=== PATIENT | male | born 1955 ===

== ENCOUNTER 2020-01-28 11:41 | Emergency (ER) | payer BC, OTHER ==
--- NOTE | 2020-01-28 11:54 | EDM.PDOC ---
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 Patient states that on Saturday he had his blood pressure medication increased due to high blood pressure and has been monitoring his blood pressure at home and had a high reading at home so came to the ED. Patient states that despite increasing the dose, his blood pressure continues to be high. Patient states that he does have a slight headache which he is unsure as if related to his blood pressure but has had it for a week. Patient denies any head injury or trauma. Patient does follow with his primary care provider, Dr. brooke, in the clinic for routine care for his diabetes, blood pressure, and high cholesterol. Patient denies fever, chills, chest pain, shortness of breath, or cough. Denies neck stiff ness, change in vision, syncope, or near syncope. Denies nausea, vomiting, abdominal pain, diarrhea, constipation, or dysuria. Has not noted any blood in urine or stool. Patient has been eating and drinking appropriately. Review of systems: As per history of present illness and below otherwise all systems reviewed and negative. Past medical history: As per history of present illness and as reviewed below otherwise noncontributory. Surgical history: As per history of present illness and as reviewed below otherwise noncontributory. Social history: See social history for further information Family history: As per history of present illness and as reviewed below otherwise noncontributory. Physical exam: General: Patient is alert, oriented, and in no acute distress. Patient sitting comfortably on exam table. HEENT: Atraumatic, normocephalic, pupils equal and reactive bilaterally, negative for conjunctival pallor or scleral icterus, mucous membranes moist, TMs normal bilaterally, throat clear, neck supple, nontender, trachea midline. No drooling or trismus noted. No meningeal signs. No hot potato voice noted. Lungs: Clear to auscultation, breath sounds equal bilaterally, chest nontender. Heart: S1S2, regular rate and rhythm without overt murmur Abdomen: Soft, nondistended, nontender. Negative for masses or hepatosplenomegaly. Negative for costovertebral tenderness. Pelvis: Stable nontender. Genitourinary: Deferred. Rectal: Deferred. Skin: Intact, warm, dry. No lesions or rashes noted. Extremities: Atraumatic, negative for cords or calf pain. Neurovascular unremarkable. Neuro: Awake, alert, oriented. Cranial nerves II through XII unremarkable. Cerebellum unremarkable. Motor and sensory unremarkable throughout. Exam nonfocal. Notes: EKG reviewed by me. HR 82, regular sinus rhythm, normal axis. Compared to prior EKG on file and no acute changes. Although patients blood pressure is elevated today, I do not see an emergent reason to correct this at this time. He has been following with blood pressure changes in medications closely with Dr. Brooke, PCP in the clinic. Patient does not show any neurological deficits on exam, no change in vision, no proteinuria, no renal failure, no back pain, no dyspnea, no altered level of consciousness, or suggestion evidence suggestive of myocardial infarction. Signs and symptoms that would prompt return to the ED reviewed and thoroughly discussed with patient. Discussed importance for follow-up with his primary care provider to have reevaluation of his blood pressure medications. He follows with Dr. Brooke who has been adjusting medications over the course of the past few weeks and discussed the importance to have this followed up with him. Voices understanding and is agreeable to plan of care. Denies any further questions or concerns at this time. Diagnostics: CBC, CMP, UA, EKG, chest x-ray, troponin, head CT Therapeutics: None (patient declines analgesic pain medication) Prescription: None Impression: Hypertension Headache Plan: 1. You can alternate ibuprofen and Tylenol as directed for pain and discomfort. 2. Follow-up with your primary care provider to have your blood pressure medications reevaluated and as discussed.. 3. Return to the ED as needed and as discussed. Definitive disposition and diagnosis as appropriate pending reevaluation and review of above. headache Pain Score (Numeric/FACES): 3 - Related Data Allergies Allergy/AdvReac Type Severity Reaction Status Date / Time No Known Allergies Allergy Verified 02/29/16 17:48 Home Meds: Home Meds metFORMIN HCl [Metformin HCl ER] 1,000 mg PO BID #60 tab.er.24 03/02/16 [Rx] Lisinopril 20 mg PO DAILY 01/28/20 [History] atorvaSTATin [Lipitor] 40 mg PO DAILY 01/28/20 [History] Past Medical History Cardiovascular History: Reports: Hypertension Endocrine/Metabolic History: Reports: Diabetes, Type II Social & Family History - Family History Family Medical History: Noncontributory ED ROS GENERAL - Review of Systems Review Of Systems: Comprehensive ROS is negative, except as noted in HPI. ED EXAM, GENERAL - Physical Exam Exam: See Below (See dictation) Course - Vital Signs Last Recorded V/S: Last Vital Signs Temp 97.8 F 01/28/20 11:58 Pulse 71 01/28/20 13:49 Resp 17 01/28/20 13:49 BP 191/107 H 01/28/20 13:49 Pulse Ox 98 01/28/20 13:49 - Orders/Labs/Meds Orders: Active Orders 24 hr Category Date Time Status EKG Documentation Completion [RC] STAT Care 01/28/20 12:16 Active EKG Documentation Completion [RC] STAT Care 01/28/20 14:25 Active Labs: Laboratory Tests 01/28/20 01/28/20 01/28/20 Range/Units 12:25 12:25 13:20 WBC 6.04 (4.0-11.0) K/uL RBC 4.88 (4.50-5.90) M/uL Hgb 14.8 (13.0-17.0) g/dL Hct 42.8 (38.0-50.0) % MCV 87.7 (80.0-98.0) fL MCH 30.3 (27.0-32.0) pg MCHC 34.6 (31.0-37.0) g/dL RDW Std Deviation 41.0 (28.0-62.0) fl RDW Coeff of Martha 13 (11.0-15.0) % Plt Count 209 (150-400) K/uL MPV 10.00 (7.40-12.00) fL Neut % (Auto) 58.8 (48.0-80.0) % Lymph % (Auto) 31.0 (16.0-40.0) % [place] % (Auto) 7.0 (0.0-15.0) % Eos % (Auto) 3.0 (0.0-7.0) % Baso % (Auto) 0.2 (0.0-1.5) % Neut # (Auto) 3.6 (1.4-5.7) K/uL Lymph # (Auto) 1.9 (0.6-2.4) K/uL [place] # (Auto) 0.4 (0.0-0.8) K/uL Eos # (Auto) 0.2 (0.0-0.7) K/uL Baso # (Auto) 0.0 (0.0-0.1) K/uL Nucleated RBC % 0.0 /100WBC Nucleated RBCs # 0 K/uL Sodium 137 (136-148) mmol/L Potassium 3.8 (3.5-5.1) mmol/L Chloride 100 (98-107) mmol/L Carbon Dioxide 27.5 (21.0-32.0) mmol/L BUN 14 (7.0-18.0) mg/dL Creatinine 1.2 (0.8-1.3) mg/dL Est Cr Clr Drug Dosing 52.59 mL/min Estimated GFR (MDRD) > 60.0 ml/min Glucose 122 H (74-106) mg/dL Calcium 8.7 (8.5-10.1) mg/dL Total Bilirubin 0.7 (0.2-1.0) mg/dL AST 21 (15-37) IU/L ALT 33 (14-63) IU/L Alkaline Phosphatase 79 (46-116) U/L Troponin I < 0.050 (0.000-0.056) ng/mL Total Protein 8.1 (6.4-8.2) g/dL Albumin 4.1 (3.4-5.0) g/dL Globulin 4.0 (2.6-4.0) g/dL Albumin/Globulin Ratio 1.0 (0.9-1.6) Urine Color YELLOW Urine Appearance CLEAR Urine pH 6.0 (5.0-8.0) Ur Specific [place] 1.020 (1.001-1.035) Urine Protein NEGATIVE (NEGATIVE) mg/dL Urine Glucose (UA) NEGATIVE (NEGATIVE) mg/dL Urine Ketones NEGATIVE (NEGATIVE) mg/dL Urine Occult Blood NEGATIVE (NEGATIVE) Urine Nitrite NEGATIVE (NEGATIVE) Urine Bilirubin NEGATIVE (NEGATIVE) Urine Urobilinogen 0.2 (<2.0) EU/dL Ur Leukocyte Esterase NEGATIVE (NEGATIVE) Departure - Departure Time of Disposition: 14:35 Disposition: Home, Self-Care 01 Clinical Impression: Hypertension Qualifiers: Hypertension type: unspecified Qualified Code(s): I10 - Essential (primary) hypertension Headache Qualifiers: Headache type: unspecified Headache chronicity pattern: unspecified pattern Intractability: not intractable Qualified Code(s): R51 - Headache Instructions: Hypertension, Adult, [id number], General Headache Without Cause, [id number] Referrals: Grant Brooke MD [Primary Care Provider] - Forms: ED Department Discharge Additional Instructions: The following information is given to patients seen in the emergency department who are being discharged to home. This information is to outline your options for follow-up care. We provide all patients seen in our emergency department with a follow-up referral. The need for follow-up, as well as the timing and circumstances, are variable depending upon the specifics of your emergency department visit. If you don't have a primary care physician on staff, we will provide you with a referral. We always advise you to contact your personal physician following an emergency department visit to inform them of the circumstance of the visit and for follow-up with them and/or the need for any referrals to a consulting specialist. The emergency department will also refer you to a specialist when appropriate. This referral assures that you have the opportunity for follow-up care with a specialist. All of these measure are taken in an effort to provide you with optimal care, which includes your follow-up. Under all circumstances we always encourage you to contact your private physician who remains a resource for coordinating your care. When calling for follow-up care, please make the office aware that this follow-up is from your recent emergency room visit. If for any reason you are refused follow-up, please contact the [facility] at and asked to speak to the emergency department charge nurse. [facility] [address] [place] [id number] [address] [id number] 1. You can alternate ibuprofen and Tylenol as directed for pain and discomfort. 2. Follow-up with your primary care provider to have your blood pressure medications reevaluated and as discussed.. 3. Return to the ED as needed and as discussed. Sepsis Event Note (ED) - Focused Exam Vital Signs: Vital Signs Temp Pulse Resp BP Pulse Ox 01/28/20 13:49 71 17 191/107 H 98 01/28/20 11:58 97.8 F 91 17 198/110 H 96 - My Orders Last 24 Hours: My Active Orders 01/28/20 12:16 EKG Documentation Completion [RC] STAT 01/28/20 14:25 EKG Documentation Completion [RC] STAT - Assessment/Plan Last 24 Hours: My Active Orders 01/28/20 12:16 EKG Documentation Completion [RC] STAT 01/28/20 14:25 EKG Documentation Completion [RC] STAT
[2020-01-28 12:55] LABS: BLOOD UREA NITROGEN,BUN 14 mg/dL (7.0-18.0); CARBON DIOXIDE,CO2 27.5 mmol/L (21.0-32.0); CHLORIDE,CL 100 mmol/L (98-107); GLUCOSE RANDOM 122 mg/dL (74-106); POTASSIUM,K 3.8 mmol/L (3.5-5.1); SODIUM,NA 137 mmol/L (136-148)
--- NOTE | 2020-01-28 13:10 | CT ---
Head CT Technique: Multiple axial sections through the brain were obtained. Intravenous contrast was not utilized. Comparison: Previous head CT study of 02/29/16. Findings: Ventricles along with basal cisterns and sulci over the convexities are within normal limits for the patient's age. No abnormal parenchymal densities are seen. No evidence of intracranial hemorrhage. No midline shift or mass-effect is seen. Bone window settings were reviewed. Visualized mastoid sinuses and paranasal sinuses show nothing acute. No acute calvarial finding is appreciated. Atherosclerotic calcification is seen within the carotid siphon. Impression: 1. Slight senescent change as noted above above. 2. No acute intracranial abnormality is seen. Diagnostic code #2 This report was dictated in MDT
--- NOTE | 2020-01-28 13:13 | CR ---
Chest: Frontal view of the chest was obtained. Comparison: Prior chest x-ray of 02/29/16. Heart size and mediastinum are within normal limits. Lungs are clear with no acute parenchymal change. Slight degenerative endplate spurring is scattered within the spine. Impression: 1. Nothing acute is appreciated on frontal chest x-ray. Diagnostic code #2 This report was dictated in MDT
[2020-01-28 14:55] VITALS: BP 173/93; PULSE 87
== END 2020-01-28 14:56 | disposition home or self-care (01) ==
LOC: MW.ED 11:41
DX: I10 Essential (primary) hypertension (principal)
CPT/HCPCS: 36415; 70450; 70450-26; 71045; 71045-26; 80053; 81003; 84484; 85025; 93005; 99283; 99284-25